=== PATIENT | female | born 1980 | race Caucasian/White ===

== ENCOUNTER 2019-07-10 15:05 | Emergency (ER) | payer OTHER ==
[~2019-07-10] VITALS: Ht 154.9 cm; Wt 65.7 kg
[2019-07-10 17:11] VITALS: BP 82/37
== END 2019-07-10 17:57 | disposition home or self-care (01) ==
LOC: ED 17:51
DX: R10.84 Generalized abdominal pain (principal); R11.2 Nausea with vomiting, unspecified
CPT/HCPCS: 36415; 76830; 80048; 81003; 82040; 84703; 85025; 99284

== ENCOUNTER 2019-10-02 13:39 | Outpatient (CLI) | payer MEDICAID | END 2019-10-02 23:59 | disposition home or self-care (01) | LOC: CFH 13:39 | PROVIDERS: ATTEND Obstetrics & Gynecology | DX: N60.02 Solitary cyst of left breast (principal); N64.89 Other specified disorders of breast; R92.8 Other abnormal and inconclusive findings on diagnostic imaging of breast; R92.2 Inconclusive mammogram; F10.21 Alcohol dependence, in remission; Z87.891 Personal history of nicotine dependence | CPT/HCPCS: 76642; 77065; G0279 ==